=== PATIENT | female | born 1985 | race Asian ===

== ENCOUNTER 2018-11-29 02:17 | Emergency (ER) | payer OTHER ==
[~2018-11-29] VITALS: Ht 165.1 cm; Wt 56.7 kg
[2018-11-29 03:06] LABS: ABSOLUTE LYMPHOCYTES 1.2 thou/uL (0.8-5.3); ABSOLUTE MONOCYTES 0.5 thou/uL (0.0-1.2); ABSOLUTE NEUTROPHILS 6.5 thou/uL (1.6-8.1); BASOPHILS 0.2 %; EOSINOPHILS 0.2 %; HEMATOCRIT 43.7 % (37.0-47.0); HEMOGLOBIN 14.8 gm/dL (12.0-15.0); LYMPHOCYTES 14.9 %; MCH 28.1 pg (26.0-34.0); MCV 82.8 fL (80.0-100.0); MONOCYTES 5.6 %; NUCLEATED RBCS 0 /100WBC; PLATELET COUNT* 306 thou/uL (150-400); POLYS 79.1 %; RBC 5.28 mil/uL (4.20-5.00); WBC 8.2 thou/uL (4.0-11.0)
[2018-11-29 03:11] LABS: URINE BLOOD NEGATIVE (Negative); URINE CLARITY CLEAR; URINE COLOR DARK YELLOW; URINE GLUCOSE-RANDOM NEGATIVE (Negative); URINE KETONES 2+ (Negative); URINE LEUKOCYTES-REFLEX NEGATIVE (Negative); URINE NITRITE-REFLEX NEGATIVE (Negative); URINE PROTEIN TRACE (Negative)
[2018-11-29 03:15] LABS: ICTOTEST (BILI CONFIRMATORY) Positive (Negative); URINE BILIRUBIN 1+ (Negative)
[2018-11-29 03:18] LABS: CALCIUM 9.4 mg/dL (8.5-10.1); CREATININE 0.6 mg/dL (0.6-1.3); POTASSIUM 3.7 mmol/L (3.5-5.1)
[2018-11-29 03:23] LABS: ALBUMIN 3.1 g/dL (3.4-5.0); TOTAL BILIRUBIN 1.9 mg/dL (<0.1-1.0); TOTAL PROTEIN 8.2 g/dL (6.4-8.2)
[2018-11-29] MEDS ORDERED: PROAIR HFA8.5 GM INH (03:34)
[2018-11-29] MEDS ORDERED: VALIUM5 MG PO (03:36)
[2018-11-29] MEDS ORDERED: ZOFRAN ODT4 MG PO (03:37)
[2018-11-29 04:20] VITALS: BP 99/66
== END 2018-11-29 04:22 ==
LOC: M.ERS 02:17
PROVIDERS: Emergency Medicine
DX: F11.23 Opioid dependence with withdrawal (principal); F17.210 Nicotine dependence, cigarettes, uncomplicated

== ENCOUNTER 2019-09-08 01:20 | Inpatient (IN) | payer OTHER ==
[~2019-09-08] VITALS: Ht 165.1 cm; Wt 71.5 kg
[2019-09-08] VITALS (14 sets, daily range): BP systolic 82–129; BP diastolic 43–78
[~2019-09-08 01:20] MED LIST: PROAIR HFA8.5 GM INH; VALIUM5 MG PO; ZOFRAN ODT4 MG PO
[2019-09-08 01:45] LABS: URINE BILIRUBIN NEGATIVE (Negative); URINE BLOOD NEGATIVE (Negative); URINE CLARITY CLEAR; URINE COLOR STRAW; URINE GLUCOSE-RANDOM 1+ (Negative); URINE KETONES NEGATIVE (Negative); URINE LEUKOCYTES-REFLEX NEGATIVE (Negative); URINE NITRITE-REFLEX NEGATIVE (Negative); URINE PROTEIN 1+ (Negative); URINE UROBILINOGEN 0.2 E.U./dl (0.2-1.0)
[2019-09-08 02:05] LABS: ABSOLUTE EOSINOPHILS 0.1 thou/uL (0.0-0.7); ABSOLUTE LYMPHOCYTES 0.8 thou/uL (0.8-5.3); ABSOLUTE MONOCYTES 0.2 thou/uL (0.0-1.2); ABSOLUTE NEUTROPHILS 5.3 thou/uL (1.6-8.1); BASOPHILS 0.3 %; EOSINOPHILS 1.5 %; HEMATOCRIT 44.5 % (37.0-47.0); HEMOGLOBIN 15.1 gm/dL (12.0-15.0); LYMPHOCYTES 12.3 %; MCH 29.5 pg (26.0-34.0); MCHC 33.9 g/dL (28.0-37.0); MCV 86.8 fL (80.0-100.0); MONOCYTES 2.4 %; MPV 8.8 fl. (7.2-11.1); NUCLEATED RBCS 0 /100WBC; PLATELET COUNT* 185 thou/uL (150-400); POLYS 83.5 %; RBC 5.13 mil/uL (4.20-5.00); WBC 6.3 thou/uL (4.0-11.0)
[2019-09-08 02:15] LABS: BE -8.7 mmol/L (-2 to +3); PCO2 38.1 mmHg (35.0-45.0)
[2019-09-08 02:17] LABS: CALCIUM 8.1 mg/dL (8.5-10.1); CREATININE 1.1 mg/dL (0.6-1.3)
[2019-09-08 02:17] LABS: PO2 175.1 mmHg (75.0-100.0); pH 7.276 (7.340-7.450)
[2019-09-08 02:18] LABS: PROTIME 9.9 Seconds (9.20-11.50)
[2019-09-08 02:19] LABS: POTASSIUM 6.2 mmol/L (3.5-5.1)
[2019-09-08 02:27] LABS: ALBUMIN 3.4 g/dL (3.4-5.0); MAGNESIUM 2.2 mg/dL (1.8-2.4); TOTAL BILIRUBIN 1.1 mg/dL (<0.1-1.0); TOTAL PROTEIN 7.9 g/dL (6.4-8.2)
[2019-09-08 02:29] LABS: ALCOHOL 68 mg/dL (<10)
[2019-09-08 02:30] LABS: ACETAMINOPHEN < 2 ug/mL (10-30); SALICYLATE < 2.8 mg/dL (2.8-20.0)
[2019-09-08 02:33] LABS: AMP/METHAMP Negative (Negative); BARBITURATES Negative (Negative); BENZODIAZEPINES POSITIVE (Negative); COCAINE Negative (Negative); METHADONE Negative (Negative); OPIATES Negative (Negative); PCP Negative (Negative); THC Negative (Negative)
--- NOTE | 2019-09-08 07:36 | NUR ---
ADMITTED TO ICU BED 7, SEE ASSESSMENT. PT A/O X4, COOPERATIVE. PT REPORTS SHE DOES NOT REMEMBER WHAT HAPPENED LAST NIGHT AND DENIES SI. PT STATES SHE AND HER WERE ADDICTED TO [facility] UNTIL APPROXIMATELY 2 MONTHS AGO. PRIOR TO QUITTING THEY BOTH LOST THEIR JOBS AND SUBSEQUENTLY THEIR HOME. PT STATES THEY LIVED IN A HOTEL FOR A WHILE WHERE THEY BOTH WENT THROUGH WITHDRAWL TO QUIT [facility]. PTS PARENTS TOOK HER AND HER IN WHEN THEY COULD NO LONGER AFFORD THE HOTEL. PT EXPRESSES GRATITUDE THAT HER PARENTS TOOK THEM IN, BUT STATES THAT SHE HAS A GREAT DEAL OF STRESS AND ANXIETY RELATED TO HER MOTHER DEGRADATION OF HER. SHE STATES HER MOTHER DOES NOT ALLOW HER TO HAVE A CELL PHONE OR LEAVE THE HOUSE; SHE STATES SHE HAS LEFT THE HOME ONCE IN THE 6 WEEKS SHE HAS LIVED THERE WHEN HER MOTHER AND SISTER TOOK HER OUT. PT WAS TEARFUL WHEN RELAYING THIS, STATING SHE FEELS JAILED AND ISOLATED. PT REPORTS HISTORY OF DEPRESSION AND ANXIETY DISORDER BUT STATES SHE DOES NOT HAVE A PCP OR PSYCHIATRIST. VSS. CALL LIGHT WITHIN REACH.
--- NOTE | 2019-09-08 12:45 | EKG ---
[place] [address] ELECTROCARDIOGRAM REPORT Name: LORI REDDY Room: [address] ADM IN .R.#: [id number] Admission: 09/08/19 Attend Phys: Сергей Coleman, Discharge: Date of : 81 Date of Service: 09/08/19 0158 Report #: [id number] THIS REPORT FOR: //name// [facility] ED Test Date: 2019-09-08 Test Time: 01:58:00 Pat Name: LORI REDDY Department: Room: [facility] Gender: F Director Education: : 1985 Requested By: Bety Hernandez Order Number: [id number] MD: Hossein Conway Measurements Intervals [place] Rate: 105 P: 60 OR: 160 QRS: 71 QRSD: 82 T: 33 QT: 348 QTc: 461 Interpretive Statements Sinus tachycardia Borderline T abnormalities, anterior leads No previous ECG available for comparison Electronically Signed On 09-08-2019 12:44:42 CDT by Hossein Conway [email or web address] <ELECTRONICALLY SIGNED> By: Hossein Conway MD, FAC 09/08/19 1244 0158 0158 Hossein Conway MD, [facility] /EPI
--- NOTE | 2019-09-08 16:35 | NUR ---
ICU rounds: Tele status. Admitted for overdose. Pt resides at home at her parent's home with her . Hx of meth, heroine and etoh abuse. Pt stated that she hasn't used any substance for 2 months. Pt stated that both she and her were on suboxone for about 9 months in 2018, but it got to costly for them to continue. Pt is A&O. Independent. No hx of HH or SNF. No DME. Goal is home. CM to provided Pt with info for [facility] and for PCP. [facility] to assess for [facility], do not anticipate that Pt will qualify. Following.
--- NOTE | 2019-09-08 17:14 | NUR ---
PT TO DISCHARGE AMA. IV ACCESS X2 AND SANCHEZ CATHETER REMOVED. PT PROVIDED A JACKET PER RADAR MECHANIC. AMA PAPERWORK SIGNED BY PT AFTER EXPLAINATION OF RISKS OF LEAVING WERE EXPLAINED.
--- NOTE | 2019-09-08 18:43 | NUR ---
PT CONTINUES TO WAIT FOR A RIDE TO LEAVE AMA.
--- NOTE | 2019-09-08 20:55 | NUR ---
PT LEFT AMA AT THIS TIME. VSS. PT DECLINED TO ALLOW FULL ASSESSMENT. ALL PERSONAL BELONGINGS ACCOUNTED FOR PER PT. CAB VOUCHER SUPPLIED BY BORDER PATROL AGENT PT COULD NOT ARRANGE A RIDE. PT AMBULATED TO ER WAITING ROOM ACCOMPANIED BY THIS RN TO AWAIT CAB ARRIVAL.
== END 2019-09-08 20:55 | disposition left against medical advice (07) | DRG 917 ==
LOC: M.ERS 01:20 → M.TBA-ER 03:21 → M.ICU 04:44
PROVIDERS: Emergency Medicine; ADMIT Internal Medicine
DX: T42.4X3A Poisoning by benzodiazepines, assault, initial encounter (principal); G92 Toxic encephalopathy; Y92.89 Other specified places as the place of occurrence of the external cause; F41.9 Anxiety disorder, unspecified; E87.5 Hyperkalemia; E16.2 Hypoglycemia, unspecified; Z53.29 Procedure and treatment not carried out because of patient's decision for other reasons; F17.210 Nicotine dependence, cigarettes, uncomplicated